=== PATIENT | male | born 1995 | race Caucasian/White ===

== ENCOUNTER → 2021-01-28 | Outpatient (CLI) | payer BC, SELFPAY | END | disposition home or self-care (01) | PROVIDERS: Visit Provider Family Medicine | DX: Z23 Encounter for immunization (principal) ==

== ENCOUNTER 2021-04-05 22:31 | Emergency (ER) | payer BC, SELFPAY ==
[2021-04-05 22:33] VITALS: BP 179/94; PULSE 93; RESP 16; TEMP 36.3; O2SAT 100; BMI 26.6
--- NOTE | 2021-04-05 22:43 | EDS_ITS ---
HPI History of Present Illness Chief Complaint: Laceration Narrative Narrative: Patient with past medical history of breathing problems presents with injury to his left index finger. He states that just prior to arrival he was using a pocket knife. He was trying to cut 11 that he was holding in his left hand when the knife slipped. He sustained a laceration to the crease of his DIP joint on his left index finger. He states his tetanus immunization is current. He denies other injuries. He is right-hand dominant. Tetanus Immunization: 5-10 years PFSH PFS Medical History no medical history Allergy/AdvReac Type Severity Reaction Status Date / Time minocycline Allergy Hives Verified 04/05/21 22:32 Surgical History no surgical history Social History Smoking Status: Never smoker ROS ROS ED ROS Narrative Constitutional: No fever, no chills. HEENT: No sore throat. No neck pain. No loss of vision. No rhinorrhea. Cardiovascular: No chest pain. No palpitations. No pedal edema. Respiratory: No cough, no shortness of breath. Abdominal: No abdominal pain. No nausea. No vomiting. Genitourinary: No dysuria. No hematuria. Musculoskeletal: No myalgias. No arthralgias. Neurologic: No headaches. No dizziness. No lightheadedness. Skin: No rash. No change in color. Laceration to palmar surface of left index finger Psychiatric: No depression. No anxiety. EXAM Physical Exam Narrative Exam Narrative: Afebrile. Vital signs noted. HEENT: Normocephalic. Atraumatic. PERRL, EOMI. Neck soft and supple. No point tenderness or step off. Cardiovascular: Regular rate and rhythm. No murmurs, rubs, or gallops appreciated. Respiratory: No tachypnea. Lungs clear to auscultation bilaterally. Gastrointestinal: Abdomen soft, nontender, with normoactive bowel sounds. No rebound or guarding. Neurological: Awake. Alert. Nonfocal, nonlateralizing. Skin: No rash. Normal color. No pallor. +1 cm laceration at DIP joint of left index finger. No apparent tendon involvement through full range of motion of fingertip. Musculoskeletal: No pedal edema. Full range of motion extremities. Const Vital Signs: 04/05/21 22:33 Temperature 97.3 F L Temperature Source Temporal Pulse Rate 93 Respiratory Rate 16 Blood Pressure 179/94 H Blood Pressure Mean 122 Pulse Ox 100 Oxygen Delivery Method Room Air MDM MDM MDM Narrative Medical decision making narrative: Patient was told of the risk of infection and scarring and acknowledges understanding. As his injury is within the DIP joint, I do feel that sutures will be required for closure. See procedure note for details. Patient tolerated procedure well. He is to have the sutures removed in 7 to 10 days. He was told to exercise the tip of his finger to prevent contracture. Disposition is discharged home in improved and stable condition. Procedures Lacerations Left inddex fingerr: Length: 0.39 in Depth: Skin Shape: Linear Prep: Sterile Conditions and Chlorhexadine Laceration repair: Irrigated, Lidocaine and Local Irrigated (ml): 100 Number of Sutures/[place]: 3 Suture Information: Ethilon and 4-0 Comment: Patient tolerated procedure well Discharge Plan Triage Chief Complaint: Laceration ED Provider: Shaan Ansari Dx/Rx/DC Orders Clinical Impression: Laceration of finger of left hand Instructions: ED Laceration, Hand: All Closures Primary Care Provider: Care Physician,No Primary Referrals: Florentin Ferrell MD [STAFF PHYSICIAN] - 10 Day for suture removal Care Physician,No Primary [Primary Care Provider] - Disposition Disposition: Home, Self Care
[2021-04-05] MEDS: Lidocaine 1% (20 ml mdv) 20 ML Vial INFILT (23:51)
== END 2021-04-05 23:51 | disposition home or self-care (01) ==
PROVIDERS: Emergency Provider Emergency Medicine; Visit Provider Emergency Medicine
DX: S61.211A Laceration without foreign body of left index finger without damage to nail, initial encounter (principal); W26.0XXA Contact with knife, initial encounter
CPT/HCPCS: 12001; 99283

== ENCOUNTER 2021-04-14 22:56 | Emergency (ER) | payer BC, SELFPAY ==
[2021-04-14 22:57] VITALS: BP 123/92; PULSE 93; RESP 16; TEMP 36.4; O2SAT 98; BMI 25.8
--- NOTE | 2021-04-14 23:12 | EDS_ITS ---
HPI History of Present Illness Chief Complaint: Suture Remv Narrative Narrative: Patient presents for suture removal from his left index finger. He cut his finger approximately 8-1/2 days ago on a knife. He has not had any problems. No fever, no discharge from the wound. [facility] Medical History Non-smoker Home Medications NK 04/14/21 [History Last Taken Unknown] Allergy/AdvReac Type Severity Reaction Status Date / Time minocycline Allergy Hives Verified 04/05/21 22:32 Social History Smoking Status: Never smoker ROS ROS ED ROS Narrative Constitutional: No fever, no chills. HEENT: No sore throat. No neck pain. No loss of vision. No rhinorrhea. Cardiovascular: No chest pain. No palpitations. No pedal edema. Respiratory: No cough, no shortness of breath. Abdominal: No abdominal pain. No nausea. No vomiting. Genitourinary: No dysuria. No hematuria. Musculoskeletal: No myalgias. No arthralgias. Neurologic: No headaches. No dizziness. No lightheadedness. Skin: No rash. No change in color. No drainage from finger laceration. Psychiatric: No depression. No anxiety. EXAM Physical Exam Narrative Exam Narrative: Afebrile. Vital signs noted. HEENT: Normocephalic. Atraumatic. PERRL, EOMI. Neck soft and supple. No point tenderness or step off. Cardiovascular: Regular rate and rhythm. No murmurs, rubs, or gallops appreciated. Respiratory: No tachypnea. Lungs clear to auscultation bilaterally. Gastrointestinal: Abdomen soft, nontender, with normoactive bowel sounds. No rebound or guarding. Neurological: Awake. Alert. Nonfocal, nonlateralizing. Skin: No rash. Normal color. No pallor. Inspection of the laceration shows [address], no erythema, no fluctuance, no purulent drainage. Musculoskeletal: No pedal edema. Full range of motion extremities. Const Vital Signs: 04/14/21 22:57 04/14/21 23:32 Temperature 97.6 F L Temperature Source Temporal Pulse Rate 93 86 Respiratory Rate 16 16 Blood Pressure 123/92 H Blood Pressure Mean 102 Pulse Ox 98 99 Oxygen Delivery Method Room Air MDM MDM MDM Narrative Medical decision making narrative: I had been the one that sutured the patient's finger. RN removed his sutures without difficulty. I reexamined the patient. His wound remains closed and there is no evidence of dehiscence. All sutures appear to have been removed. At this point in time, I feel he can be discharged safely home with follow-up. Return instructions were reviewed. Disposition is discharged home in stable condition. Discharge Plan Triage Chief Complaint: Suture Remv ED Provider: Shaan Ansari Dx/Rx/DC Orders Clinical Impression: Encounter for removal of sutures Instructions: ED Stitches/Staple Removal No ... Prescriptions: No Action NK RF: 0 Primary Care Provider: Care Physician,No Primary Referrals: Care Physician,No Primary [Primary Care Provider] - Disposition Disposition: Home, Self Care Discharge Date/Time: 04/14/21 23:33
[2021-04-14 23:32] VITALS: PULSE 86; RESP 16; O2SAT 99
== END 2021-04-14 23:33 | disposition home or self-care (01) ==
LOC: ED 23:24
PROVIDERS: Emergency Provider Emergency Medicine; Visit Provider Emergency Medicine
DX: Z48.02 Encounter for removal of sutures (principal)
CPT/HCPCS: 99282

== ENCOUNTER 2021-04-30 14:01 | Outpatient (CLI) | payer BC, SELFPAY ==
[2021-04-30 14:04] LABS: Bacteria 0 SEEN /hpf (None Seen); Mucous, Urine 0 SEEN /hpf (<or=2+); Red Blood Cells-Urine 0 SEEN /hpf (0-5); Squamous Epithelial Cells - UA 0 SEEN /hpf (0-5); White Blood Cells 0 SEEN /hpf (0-5)
[2021-04-30 15:17] LABS: Color, Urine Yellow (Yellow); Glucose, Dipstick Normal (Normal); Ketone-Dipstick Negative (Negative); Leukocyte Esterase-Dipstick Negative /ul (Negative); Nitrite-Dipstick Negative (Negative); Occult Blood-Urine Negative /ul (Negative); Protein-Dipstick Negative (Negative); Specific Gravity, Urine 1.025 (1.002-1.030); Urine Bilirubin Dipstick Negative (Negative); Urine Clarity Clear (Clear); Urine Urobilinogen Normal (Normal)
== END 2021-04-30 23:59 | disposition home or self-care (01) ==
LOC: LABSPEC 14:03
PROVIDERS: PCP Internal Medicine; Referring Provider Internal Medicine; Visit Provider Internal Medicine
DX: R30.0 Dysuria (principal)
CPT/HCPCS: 81001